=== PATIENT | female | born 1950 | race Caucasian/White ===

== ENCOUNTER 2023-11-20 09:28 | Emergency (ER) | payer MEDICARE, OTHER, MEDICAID ==
[~2023-11-20] VITALS: Wt 76.5 kg
[~2023-11-20 09:28] MED LIST: AMLODIPINE BESY10 MG PO; CALCIUM 500+D1 EAC2 PO; CIPRO500 MG PO; DONEPEZIL HCL10 MG PO; MEMANTINE HCL10 MG PO; MIRTAZAPINE15 M2 PO; OXYBUTYNIN10 MG PO; QUETIAPINE FUM100 M3 PO; QUETIAPINE FUMA50 M1 PO; RIVASTIGMINE1 EAC2 T; ROPINIROLE HYD0.5 MG PO; SEROQUEL100 MG PO; SERTRALINE HYD100 MG PO; SIMVASTATIN40 MG PO; VISION FORMULA1 EAC1 PO; VITAMIN D350 MC3 PO
[2023-11-20] MEDS ORDERED: AMOX-CLAV 875-1 EACH PO (10:02)
[2023-11-20] MEDS ORDERED: DIVALPROEX SOD125 M1 PO (10:04)
[2023-11-20] MEDS ORDERED: DULCOLAX STOOL100 M1 PO (10:05)
[2023-11-20] MEDS ORDERED: FERROUS SULFAT325 MG PO (10:07)
[2023-11-20] MEDS ORDERED: ACETAMINOPHEN 325 MG/10.15 ML UDC PO ONE (11:25)
== END 2023-11-20 14:17 | disposition home or self-care (01) ==
LOC: ED 09:28
DX: M79.10 Myalgia, unspecified site (principal); F03.90 Unspecified dementia, unspecified severity, without behavioral disturbance, psychotic disturbance, mood disturbance, and anxiety; I10 Essential (primary) hypertension; F32.A Depression, unspecified; F41.9 Anxiety disorder, unspecified; E78.5 Hyperlipidemia, unspecified; Z90.710 Acquired absence of both cervix and uterus; W07.XXXA Fall from chair, initial encounter; Y93.89 Activity, other specified; Y92.531 Health care provider office as the place of occurrence of the external cause; Y99.8 Other external cause status

== ENCOUNTER 2024-08-27 14:07 | Inpatient (IN) | payer MEDICARE, OTHER, MEDICAID ==
[~2024-08-27] VITALS: Ht 154.9 cm; Wt 89.1 kg
[~2024-08-27 14:07] MED LIST changes: +AMOX-CLAV 875-1 EACH PO; +DIVALPROEX SOD125 M1 PO; +DULCOLAX STOOL100 M1 PO; +FERROUS SULFAT325 MG PO
[2024-08-27 14:09] VITALS: BP 118/64
[2024-08-27] MEDS ORDERED: SODIUM CHLORIDE 0.9% 1,000 ML IV ONE ×3 (14:15→16:20)
[2024-08-27 14:39] LABS: BASO # 0.1 10*3/uL (0.0-0.1); BASO % 0.5 % (0.0-1.0); EOS # 0.2 10*3/uL (0.0-0.4); EOS % 1.9 % (1.0-4.0); HEMATOCRIT 41.4 % (37.0-47.0); MEAN CELL VOLUME 93.5 fl (81.0-99.0); MEAN CORPUSCULAR HGB 30.2 pg (27.0-31.0); MEAN CORPUSCULAR HGB CONC 32.4 g/dl (33.0-37.0); MEAN PLATELET VOLUME 9.9 fl (9.6-12.3); MONO # 0.8 10*3/uL (0.1-1.0); MONO % 7.5 % (3.0-9.0); NEUT # 6.3 10*3/uL (2.3-7.9); NEUT % 61.1 % (47.0-73.0); PLATELET COUNT AUTOMATED 251 10*3/uL (130-400); RED BLOOD COUNT 4.43 10*6/uL (4.10-5.10); RED CELL DISTRI WIDTH 12.8 % (0-14.5); WHITE BLOOD COUNT 10.3 10*3/uL (4.8-10.8)
[2024-08-27 15:06] LABS: BUN 23 mg/dl (9-23); CHLORIDE 114 mmol/L (98-107); POTASSIUM 3.9 mmol/L (3.4-5.1)
[2024-08-27 16:10] LABS: BILIRUBIN Negative (Negative); BLOOD 2+ (Negative); CLARITY Turbid (Clear); COLOR Yellow (Yellow); GLUCOSE Negative (Negative); KETONE Negative (Negative); LEUKO ESTERASE 3+ (Negative); NITRITE Positive (Negative); PH 6.5 (4.5-8.0); UROBILINOGEN 0.2 E.U./dl (0.0-1.0)
[2024-08-27] MEDS ORDERED: cefTRIAXone Sodium 1 GM/10 ML SYR IV ONE (16:15)
[2024-08-27 16:38] LABS: WBC TNTC wbc/hpf (0-5)
[2024-08-27] MEDS ORDERED: Ondansetron Hydrochloride 4 MG/2 ML VIAL IV PRN (17:05)
[2024-08-27] MEDS ORDERED: BISACODYL 5 MG TAB PO PRN (17:05)
[2024-08-27] MEDS ORDERED: Magnesium Hydroxide 30 ML UDC PO PRN (17:05)
[2024-08-27] MEDS ORDERED: MORPHINE Sulfate 2 MG/ML SYR IV PRN (17:05)
[2024-08-27] MEDS ORDERED: SODIUM CHLORIDE 0.9% 1,000 ML IV SCH (17:05)
[2024-08-27] MEDS ORDERED: ACETAMINOPHEN 325 MG TAB PO PRN (17:05)
[2024-08-27] MEDS ORDERED: TEMAZEPAM 15 MG CAP PO PRN (17:05)
[2024-08-27] MEDS ORDERED: Acetaminophen/Hydrocodone 5 MG/325 MG TABLET PO PRN (17:05)
[2024-08-27 18:12] VITALS: BP 124/72
[2024-08-27 20:00] VITALS: BP 165/132
[2024-08-27 20:08] VITALS: BP 118/72
[2024-08-27 21:10] VITALS: BP 122/48
[2024-08-27] MEDS ORDERED: ARTIFICIAL TEAR1514 OU (22:02)
[2024-08-27] MEDS ORDERED: CLARITIN10 MG PO (22:05)
[2024-08-27] MEDS ORDERED: MEGACE 40400 MG/10 PO (22:07)
[2024-08-27] MEDS ORDERED: ONDANSETRON HYDR8 MG PO (22:09)
[2024-08-27] MEDS ORDERED: RIVASTIGMINE TAR6 M1 PO (22:13)
[2024-08-27] MEDS ORDERED: MIRALAX119 GM PO (22:17)
[2024-08-27] MEDS ORDERED: BISACODYL10 MG R (22:19)
[2024-08-27] MEDS ORDERED: MILK OF MA400 MG/53 PO (22:21)
[2024-08-28] VITALS: BP 117/48
[2024-08-28 06:16] LABS: ACT PARTIAL THROMBO TIME 24.2 SECONDS (20.0-32.1)
[2024-08-28 06:23] LABS: BASO % 0.4 % (0.0-1.0); EOS # 0.2 10*3/uL (0.0-0.4); EOS % 1.9 % (1.0-4.0); HEMATOCRIT 39.9 % (37.0-47.0); MEAN CELL VOLUME 91.3 fl (81.0-99.0); MEAN CORPUSCULAR HGB 30.4 pg (27.0-31.0); MEAN CORPUSCULAR HGB CONC 33.3 g/dl (33.0-37.0); MEAN PLATELET VOLUME 10.1 fl (9.6-12.3); MONO # 0.6 10*3/uL (0.1-1.0); MONO % 5.8 % (3.0-9.0); NEUT % 64.9 % (47.0-73.0); PLATELET COUNT AUTOMATED 229 10*3/uL (130-400); RED BLOOD COUNT 4.37 10*6/uL (4.10-5.10); RED CELL DISTRI WIDTH 12.5 % (0-14.5); WHITE BLOOD COUNT 10.8 10*3/uL (4.8-10.8)
[2024-08-28 06:37] LABS: BUN 15 mg/dl (9-23); CHLORIDE 115 mmol/L (98-107); POTASSIUM 3.5 mmol/L (3.4-5.1)
[2024-08-28] MEDS ORDERED: MEGESTROL ACETATE 400 MG/10 ML UDC PO SCH (07:30)
[2024-08-28 08:00] VITALS: BP 151/91
[2024-08-28] MEDS ORDERED: Cholecalciferol 2,000 UNIT TABLET (50 MCG) PO SCH (10:00)
[2024-08-28] MEDS ORDERED: Rivastigmine Tartrate 3 MG CAP PO SCH (10:00)
[2024-08-28] MEDS ORDERED: DIVALPROEX SODIUM 125 MG TAB PO SCH (10:00)
[2024-08-28] MEDS ORDERED: amLODIPine besylate 10 MG TAB PO SCH (10:00)
[2024-08-28] MEDS ORDERED: LORATADINE 10 MG TAB PO SCH (10:00)
[2024-08-28] MEDS ORDERED: DOCUSATE SODIUM 100 MG CAP PO SCH (10:00)
[2024-08-28] MEDS ORDERED: Oxybutynin Chloride 5 MG TAB PO SCH (10:00)
[2024-08-28] MEDS ORDERED: Enoxaparin Sodium 40 MG/0.4 ML SYR SC SCH (10:00)
[2024-08-28] MEDS ORDERED: Memantine Hydrochloride 10 MG TAB PO SCH (10:00)
[2024-08-28] MEDS ORDERED: Polyethylene Glycol 3350 17 GM PACKET PO SCH (10:00)
[2024-08-28 12:00] VITALS: BP 148/91
[2024-08-28 16:00] VITALS: BP 172/90
[2024-08-28] MEDS ORDERED: cefTRIAXone Sodium 1 GM in SYRINGE INFUSION 10 ML IV SCH (17:00)
[2024-08-28 20:00] VITALS: BP 135/89
[2024-08-28] MEDS ORDERED: Mirtazapine 15 MG TAB PO SCH (21:00)
[2024-08-28] MEDS ORDERED: SIMVASTATIN 20 MG TAB PO SCH (22:00)
[2024-08-29] VITALS: BP 154/91
[2024-08-29 04:00] VITALS: BP 150/90
[2024-08-29 06:40] LABS: BASO # 0.1 10*3/uL (0.0-0.1); BASO % 0.4 % (0.0-1.0); EOS # 0.4 10*3/uL (0.0-0.4); EOS % 2.7 % (1.0-4.0); HEMATOCRIT 38.1 % (37.0-47.0); MEAN CELL VOLUME 91.1 fl (81.0-99.0); MEAN CORPUSCULAR HGB 30.4 pg (27.0-31.0); MEAN CORPUSCULAR HGB CONC 33.3 g/dl (33.0-37.0); MEAN PLATELET VOLUME 10.1 fl (9.6-12.3); MONO # 0.7 10*3/uL (0.1-1.0); MONO % 5.6 % (3.0-9.0); NEUT # 8.3 10*3/uL (2.3-7.9); NEUT % 63.1 % (47.0-73.0); PLATELET COUNT AUTOMATED 228 10*3/uL (130-400); RED BLOOD COUNT 4.18 10*6/uL (4.10-5.10); RED CELL DISTRI WIDTH 12.5 % (0-14.5); WHITE BLOOD COUNT 13.2 10*3/uL (4.8-10.8)
[2024-08-29 07:03] LABS: BUN 9 mg/dl (9-23); CHLORIDE 108 mmol/L (98-107); POTASSIUM 3.5 mmol/L (3.4-5.1)
[2024-08-29] MEDS ORDERED: SODIUM CHLORIDE 0.9% 1,000 ML IV ONE (07:40)
[2024-08-29 08:00] VITALS: BP 117/44
[2024-08-29 11:44] VITALS: BP 158/68
[2024-08-29 16:00] VITALS: BP 134/55
[2024-08-29 20:00] VITALS: BP 148/80
[2024-08-30 00:03] VITALS: BP 162/91
[2024-08-30 04:00] VITALS: BP 160/88
[2024-08-30 07:48] VITALS: BP 133/66
[2024-08-30 08:02] LABS: BASO % 0.3 % (0.0-1.0); EOS # 0.3 10*3/uL (0.0-0.4); EOS % 2.5 % (1.0-4.0); HEMATOCRIT 36.8 % (37.0-47.0); MEAN CELL VOLUME 88.9 fl (81.0-99.0); MEAN CORPUSCULAR HGB 30.4 pg (27.0-31.0); MEAN CORPUSCULAR HGB CONC 34.2 g/dl (33.0-37.0); MEAN PLATELET VOLUME 9.7 fl (9.6-12.3); MONO # 0.7 10*3/uL (0.1-1.0); MONO % 6.8 % (3.0-9.0); NEUT # 6.4 10*3/uL (2.3-7.9); NEUT % 62.9 % (47.0-73.0); PLATELET COUNT AUTOMATED 208 10*3/uL (130-400); RED BLOOD COUNT 4.14 10*6/uL (4.10-5.10); RED CELL DISTRI WIDTH 12.6 % (0-14.5); WHITE BLOOD COUNT 10.1 10*3/uL (4.8-10.8)
[2024-08-30 08:25] LABS: BUN 8 mg/dl (9-23); CHLORIDE 106 mmol/L (98-107); POTASSIUM 3.7 mmol/L (3.4-5.1)
[2024-08-30 12:00] VITALS: BP 122/81
[2024-08-30] MEDS ORDERED: SEPTDS PO (12:39)
== END 2024-08-30 15:51 | DRG 871 ==
LOC: ED 14:07 → 5E 16:27 → EDHOLD 16:27 → 5E 20:29
PROVIDERS: Emergency Medicine; Student in an Organized Health Care Education/Training Program; ADMIT Family Medicine; ATTEND Family Medicine
DX: A41.9 Sepsis, unspecified organism (principal); G93.41 Metabolic encephalopathy; N30.01 Acute cystitis with hematuria; E87.0 Hyperosmolality and hypernatremia; F33.9 Major depressive disorder, recurrent, unspecified; Z66 Do not resuscitate; F03.90 Unspecified dementia, unspecified severity, without behavioral disturbance, psychotic disturbance, mood disturbance, and anxiety; R73.9 Hyperglycemia, unspecified; I10 Essential (primary) hypertension; E78.2 Mixed hyperlipidemia; F41.8 Other specified anxiety disorders; E55.9 Vitamin D deficiency, unspecified; Z20.822 Contact with and (suspected) exposure to COVID-19; Z90.710 Acquired absence of both cervix and uterus; Z79.899 Other long term (current) drug therapy

== ENCOUNTER → 2025-05-18 | Outpatient (CLI) | payer MEDICARE, OTHER, MEDICAID ==
[~2025-05-18] MED LIST changes: +ARTIFICIAL TEAR1514 OU; +BARIUM SULFATE 98% 340 GM BOT PO ONE; +BISACODYL10 MG R; +CLARITIN10 MG PO; +MEGACE 40400 MG/10 PO; +MILK OF MA400 MG/53 PO; +MIRALAX119 GM PO; +ONDANSETRON HYDR8 MG PO; +RIVASTIGMINE TAR6 M1 PO; +SEPTDS PO
== END | disposition home or self-care (01) ==
LOC: RAD/SH 10:00
PROVIDERS: ATTEND Internal Medicine
DX: G30.1 Alzheimer's disease with late onset (principal); F02.818 Dementia in other diseases classified elsewhere, unspecified severity, with other behavioral disturbance